=== PATIENT | female | born 1965 | race Caucasian/White ===

== ENCOUNTER 2025-06-07 07:52 | Outpatient (CLI) | payer OTHER, SELFPAY | END 2025-06-07 07:53 | disposition home or self-care (01) | LOC: ANHAUDASC 07:53 | PROVIDERS: PCP Otolaryngology; Visit Provider Otolaryngology | DX: H65.499 Other chronic nonsuppurative otitis media, unspecified ear (principal); H90.6 Mixed conductive and sensorineural hearing loss, bilateral; H60.543 Acute eczematoid otitis externa, bilateral | CPT/HCPCS: 92557; 92567 ==

== ENCOUNTER 2025-06-10 10:58 | Outpatient (CLI) | payer OTHER, SELFPAY ==
--- NOTE | ~2025-06-10 | CT_ITS ---
EXAMINATION: CT IAC/mastoids BI wo con DATE: 06/10/2025 11:20 INDICATION: Cholesteatoma of mastoid, left ear. TECHNIQUE: Computed tomography (CT) of the temporal bones was performed without intravenous contrast. Automated exposure control and iterative reconstruction technique were employed. The dose-length product was 208.48 mGy-cm. COMPARISON: None FINDINGS: RIGHT TEMPORAL BONE: The internal auditory canal, cochlea, vestibule, semicircular canals, vestibular aqueduct, carotid canal, jugular bulb, facial nerve course, and ossicles are normal. Prussak space and scutum are normal. There is thickening of tympanic membrane and material in the external auditory canal abutting the tympanic membrane. LEFT TEMPORAL BONE: The internal auditory canal, cochlea, vestibule, semicircular canals, vestibular aqueduct, carotid canal, jugular bulb, facial nerve course, and ossicles are normal. Prussak space and scutum are normal. There is thickening of tympanic membrane and material in external auditory canal abutting the tympanic membrane. IMPRESSION: 1. Thickening of the tympanic membrane with material in the external auditory canal abutting the tympanic membrane on both sides, which may be cerumen, otitis externa, or cholesteatoma. Correlate with physical exam. Reviewed, dictated and finalized at location E. R BENDER IMPRESSION: 1. Thickening of the tympanic membrane with material in the external auditory c anal abutting the tympanic membrane on both sides, which may be cerumen, otitis externa, or cholesteatoma. Correlate with physical exam.
== END 2025-06-10 10:59 | disposition home or self-care (01) ==
PROVIDERS: PCP Internal Medicine; Visit Provider Otolaryngology
DX: H71.22 Cholesteatoma of mastoid, left ear (principal); H90.6 Mixed conductive and sensorineural hearing loss, bilateral; H62.43 Otitis externa in other diseases classified elsewhere, bilateral; H60.543 Acute eczematoid otitis externa, bilateral; B36.9 Superficial mycosis, unspecified
CPT/HCPCS: 70480